=== PATIENT | female | born 1970 | race Caucasian/White ===

== ENCOUNTER 2017-06-19 12:45 | Emergency (ER) | payer OTHER ==
[2006-05-13 21:35] VITALS: BP 110/53
[~2017-06-19] VITALS: Ht 162.6 cm; Wt 86.4 kg
[~2017-06-19 12:45] MED LIST: FLAGYL500 MG PO; LEVAQUIN 750MG750 M1 PO; LORTAB 5/500 501 TAB PO; LORTAB 7.5/5001 TAB PO; PERCOCET 325 MG1 TA2 PO; PRENATAL VITAMI1 TA5 PO; PRENATAL1 TA1 PO; PRILOSEC 20MG20 MG PO; PROTONIX 40MG T40 MG PO; REGLAN 10MG10 MG/TAB PO
[2017-06-19 12:50] VITALS: BP 147/78; TEMP 97.7
[2017-06-19] MEDS ORDERED: PERCOCET 325 MG1 TA2 PO (15:07)
[2017-06-19] MEDS ORDERED: CRUTCHES MC (15:07)
[2017-06-19 15:44] VITALS: PULSE 68
== END 2017-06-19 15:45 | disposition home or self-care (01) ==
LOC: COL.ER 12:45
DX: S89.91XA Unspecified injury of right lower leg, initial encounter (principal); K50.90 Crohn's disease, unspecified, without complications; X50.0XXA Overexertion from strenuous movement or load, initial encounter
CPT/HCPCS: J1170; L1830

== ENCOUNTER → 2017-08-03 | Outpatient (CLI) | payer OTHER ==
[~2017-08-03] MED LIST changes: +CRUTCHES MC
== END ==
LOC: COL.VAS 14:06
DX: M79.89 Other specified soft tissue disorders (principal)